=== PATIENT | female | born 1955 | race Caucasian/White ===

== ENCOUNTER 2023-02-28 16:57 | Emergency (ER) | payer MEDICAID ==
[~2023-02-28] VITALS: Ht 167.6 cm; Wt 86.2 kg
[~2023-02-28 16:57] MED LIST: DIFLUCAN150 MG PO; MOTRIN800 MG PO; NIZORAL 2%15 GM PO
[2023-02-28 17:00] VITALS: BP 171/81
[2023-02-28 17:22] LABS: BASO # 0.1 10*3/uL (0.0-0.1); BASO % 0.7 % (0.0-1.0); EOS # 0.1 10*3/uL (0.0-0.4); EOS % 0.7 % (1.0-4.0); HEMATOCRIT 32.6 % (37.0-47.0); LYMPH # 0.8 10*3/uL (1.3-4.4); LYMPH % 9.4 % (27.0-41.0); MEAN CELL VOLUME 95.3 fl (81.0-99.0); MEAN CORPUSCULAR HGB 30.1 pg (27.0-31.0); MEAN CORPUSCULAR HGB CONC 31.6 g/dl (33.0-37.0); MEAN PLATELET VOLUME 10.7 fl (9.6-12.3); MONO # 0.8 10*3/uL (0.1-1.0); NEUT # 6.7 10*3/uL (2.3-7.9); NEUT % 79.6 % (47.0-73.0); PLATELET COUNT AUTOMATED 245 10*3/uL (130-400); RED BLOOD COUNT 3.42 10*6/uL (4.10-5.10); RED CELL DISTRI WIDTH 13.2 % (0-14.5); WHITE BLOOD COUNT 8.4 10*3/uL (4.8-10.8)
[2023-02-28 17:40] LABS: POTASSIUM 4.8 mmol/L (3.4-5.1); TOTAL PROTEIN 5.4 gm/dL (6.0-8.0)
[2023-02-28 17:43] LABS: BILIRUBIN Negative (Negative); BLOOD Negative (Negative); CLARITY Clear (Clear); COLOR Yellow (Yellow); GLUCOSE Negative (Negative); KETONE Negative (Negative); LEUKO ESTERASE 1+ (Negative); NITRITE Negative (Negative); PH 7.5 (4.5-8.0); SPECIFIC GRAVITY 1.015 (1.001-1.030); UROBILINOGEN 0.2 E.U./dl (0.0-1.0)
[2023-02-28 18:01] LABS: RBC 0-2 rbc/hpf (0-2)
== END 2023-02-28 23:59 | disposition short-term general hospital (02) ==
LOC: ED 16:57 → EDHOLD 20:49 → ED 20:49
PROVIDERS: Emergency Medicine
DX: N17.9 Acute kidney failure, unspecified (principal); R10.32 Left lower quadrant pain; K43.5 Parastomal hernia without obstruction or gangrene; N39.0 Urinary tract infection, site not specified; E87.1 Hypo-osmolality and hyponatremia; R11.0 Nausea; E11.9 Type 2 diabetes mellitus without complications; Z88.8 Allergy status to other drugs, medicaments and biological substances; Z98.51 Tubal ligation status; Z98.890 Other specified postprocedural states